=== PATIENT | male | born 1980 | race Caucasian/White ===

== ENCOUNTER 2018-06-30 14:40 | Emergency (ER) | payer OTHER ==
[2018-06-30 15:08] VITALS: TEMP 98.2
--- NOTE | 2018-06-30 15:27 | RAD ---
Right hand 2 views INDICATION: Third digit deformity IMPRESSION: Dorsal dislocation long finger at the PIP joint. Small fragment near the head of the proximal phalanx. No additional internal derangement Electronically signed by: Lui Hou MD 06/30/2018 3:25 PM [facility]
--- NOTE | 2018-06-30 15:27 | RAD ---
EXAM DESCRIPTION: Wrist,Right 2 Views CLINICAL HISTORY: 38 yearsMale, bucked off. Right wrist pain. COMPARISON: None. IMPRESSION: 2 views of the right wrist demonstrate no evidence of acute fracture, dislocation, or destructive osseous lesion. If there is persistent anatomic snuffbox tenderness, repeat wrist imaging to include a scaphoid view is recommended in one week to evaluate for occult scaphoid fracture. Electronically signed by: Barak Abbott MD 06/30/2018 3:25 PM [facility]
--- NOTE | 2018-06-30 15:29 | RAD ---
EXAM DESCRIPTION: Wrist,Left 2 Views CLINICAL HISTORY: bucked off COMPARISON: None. TECHNIQUE: 2 views left FINDINGS: I see no bone joint or soft tissue abnormality. IMPRESSION: Normal left wrist Electronically signed by: Nikita Huerta MD 06/30/2018 3:27 PM [facility]
--- NOTE | 2018-06-30 16:18 | ED.PDOC ---
History of Present Illness - General Chief Complaint: Trauma Time Seen by Provider: 06/30/18 14:43 Source: patient Exam Limitations: no limitations - History of Present Illness Initial Comments: the patient is a 38-year-old male presenting to the emergency room secondary to having been bucked off a horse just prior to arrival. He was not knocked out but he was dazed. He is alert and oriented 4. No neck pain. He landed apparently on his face and his classes made abrasion below the right orbit. He has a deformed third finger of the right hand and he is complaining of bilateral wrist pain though there is no deformity there. He appears to be neurovascularly intact. No other evidence of painful areas. Timing/Duration: momentarily Severity: moderate Improving Factors: nothing Worsening Factors: movement Associated Symptoms: denies symptoms Allergies/Adverse Reactions: Allergies Penicillins Allergy (Verified 06/30/18 15:08) Home Medications: Ambulatory Orders NK 06/30/18 Review of Systems - Review of Systems Constitutional: States: malaise EENTM: States: no symptoms reported Respiratory: States: no symptoms reported Cardiology: States: no symptoms reported Gastrointestinal/Abdominal: States: no symptoms reported Genitourinary: States: no symptoms reported Musculoskeletal: States: see HPI Skin: States: see HPI Neurological: States: see HPI, headache - mild Endocrine: States: no symptoms reported All other Systems: No Change from Baseline Past Medical History (General) - Patient Medical History Hx Seizures: No Hx Stroke: No Hx of COPD: No Hx Congestive Heart Failure: No Hx Hypertension: No Hx Thyroid Disease: No Hx Diabetes: No Hx Gastroesophageal Reflux: No Surgical History: no surgical history Family Medical History - Family History Mother Family History: No Known Physical Exam - Physical Exam General Appearance: Alert, Comfortable, No apparent distress Eye Exam: bilateral normal Ears, Nose, Throat: hearing grossly normal, normal ENT inspection, normal pharynx Neck: full range of motion, supple Respiratory: lungs clear, normal breath sounds, no respiratory distress, no accessory muscle use Cardiovascular/Chest: normal peripheral pulses, regular rate, rhythm, no edema Peripheral Pulses: radial,right: 2+, radial,left: 2+, dorsalis pedis,right: 2+, dorsalis pedis,left: 2+ Gastrointestinal/Abdominal: non tender, soft Rectal Exam: deferred Back Exam: no CVA tenderness, no vertebral tenderness Extremity: no pedal edema, no calf tenderness, normal capillary refill, other - he does have discomfort palpation over bilateral wrists but no gross deformity. Passive and active range of motion preserved. Strength is preserved. He does have deformity of thethird digit right hand at the proximal interphalangeal joint. 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 Comments: Vital Signs - 24 hr 06/30/18 14:45 Temperature 98.2 F Pulse Rate [ 74 left brachial] Respiratory 16 Rate Blood Pressure 116/69 [left brachial] O2 Sat by Pulse 96 Oximetry Progress - Progress Progress: 06/30/18 16:19 the patient's 38-year-old male that was bucked off and sustained what appears to be a mild concussion. He has been monitored for 2 hours without significant neurological changes. Motrin and Tylenol can be used for headache. He needs to keep himself well-hydrated. Needs to avoid overheating for the next few weeks. Additionally the patient has a dislocated proximal interphalangeal joint of the right third digit. This was reduced without difficulty. He does also likely have a very small chip fracture due to the dislocation. He is being placed in a splint. he is neurovascularly intact at this time. If he has significant pain with moving the digit after a few weeks then he may need to see orthopedics and have the small chip removed. He has been made aware of this. ER warnings were given. He also has mild bilateral wrist sprains. - Results/Orders Results/Orders: x-ray of bilateral wrist shows no obvious fracture. X-ray of the right hand shows a dorsal displacement of the middle phalanx over the proximal phalanx of the third digit of the right hand. No large fracture but there does appear to be a small chip Departure - Departure Clinical Impression: Concussion Qualifiers: Encounter type: initial encounter Loss of consciousness presence/duration: without LOC Qualified Code(s): S06.0X0A - Concussion without loss of consciousness, initial encounter Dislocation, finger Qualifiers: Encounter type: initial encounter Qualified Code(s): S63.259A - Unspecified dislocation of unspecified finger, initial encounter Sprain of wrist, right Qualifiers: Encounter type: initial encounter Qualified Code(s): S63.501A - Unspecified sprain of right wrist, initial encounter Sprain of wrist, left Qualifiers: Encounter type: initial encounter Qualified Code(s): S63.502A - Unspecified sprain of left wrist, initial encounter Disposition: Discharge to Home or Self Care Condition: Fair Departure Forms: ED Discharge - Pt. Copy, Patient Portal Self Enrollment Diet: regular diet Activity: increase activity as tolerated Home Medications: Ambulatory Orders NK 06/30/18 Additional Instructions: the patient's 38-year-old male that was bucked off and sustained what appears to be a mild concussion. He has been monitored for 2 hours without significant neurological changes. Motrin and Tylenol can be used for headache. He needs to keep himself well-hydrated. Needs to avoid overheating for the next few weeks. Additionally the patient has a dislocated proximal interphalangeal joint of the right third digit. This was reduced without difficulty. He does also likely have a very small chip fracture due to the dislocation. He is being placed in a splint. he is neurovascularly intact at this time. If he has significant pain with moving the digit after a few weeks then he may need to see orthopedics and have the small chip removed. He has been made aware of this. ER warnings were given. He also has mild bilateral wrist sprains.
[2018-06-30] MEDS ORDERED: CHLORHEXIDINE GLUCONATE 4 % 15 ML UD TOP ONE (16:53)
[2018-06-30] MEDS ORDERED: NEOMYCIN-BACITRACIN-POLYMYXIN 0.9 GM UD TOP ONE (16:53)
[2018-06-30 17:03] VITALS: BP 143/78; O2SAT 99
== END 2018-06-30 17:02 | disposition home or self-care (01) ==
LOC: ER 14:40
DX: S06.0X0A Concussion without loss of consciousness, initial encounter (principal); S63.252A Unspecified dislocation of right middle finger, initial encounter; S63.501A Unspecified sprain of right wrist, initial encounter; S63.502A Unspecified sprain of left wrist, initial encounter; S00.81XA Abrasion of other part of head, initial encounter; V80.010A Animal-rider injured by fall from or being thrown from horse in noncollision accident, initial encounter; Y93.52 Activity, horseback riding; Y92.9 Unspecified place or not applicable